=== PATIENT | female | born 1970 | race American Indian/Alaskan Native ===

== ENCOUNTER 2016-12-29 10:13 | Outpatient (CLI) | payer MEDICARE ==
--- NOTE | 2016-12-29 11:31 | Mammography Report ---
LEFT DIGITAL DIAGNOSTIC MAMMOGRAM : 12/29/16 10:13:00 CLINICAL: Six month follow-up calcifications. COMPARISON:06/28/16 FINDINGS:MLO, LM and CC magnification views were performed.Stable scattered upper outer quadrant calcifications. The group of calcifications more posterior as more amorphous forms. Stable layering calcifications at the superior aspect of the group. IMPRESSION: Stable probably benign calcifications. BI-RADS CATEGORY: 3 -- Probably Benign RECOMMENDATION: Six month followup bilateral diagnostic mammogram to include magnification views of the left breast. ACR BI-RADS MAMMOGRAPHIC CODES: 0 = Needs additional imaging evaluation; 1 = Negative; 2 = Benign; 3 = Probably benign; 4 = Suspicious; 5 = Malignant; 6 = Known biopsy-proven malignancy COMMENT: 1. Dense breast tissue, i.e., adenosis, fibrocystic changes, etc., may obscure an underlying neoplasm. 2. Approximately 10% of cancers are not detected with mammography. 3. A negative mammography report should not delay biopsy if a clinically suspicious mass is present. COMMENT: Patient follow-up letters are generated by our [employer] application.
== END 2016-12-29 10:14 | disposition home or self-care (01) ==
LOC: SPVWC 10:13
PROVIDERS: ATTEND Obstetrics & Gynecology
DX: R92.8 Other abnormal and inconclusive findings on diagnostic imaging of breast (principal); I12.0 Hypertensive chronic kidney disease with stage 5 chronic kidney disease or end stage renal disease; N18.6 End stage renal disease
CPT/HCPCS: G0206-LT